=== PATIENT | male | born 1980 | race Caucasian/White ===

== ENCOUNTER 2016-07-04 04:54 | Emergency (ER) | payer SELFPAY ==
[~2016-07-04] VITALS: Ht 182.9 cm; Wt 80.0 kg
[2016-07-04 04:57] VITALS: BP 163/82; PULSE 118; RESP 16; TEMP 97.6; O2SAT 97
[2016-07-04] MEDS ORDERED: SODIUM CHLOR 0.9% 1000 ML INJ 1,000 ML IV SCH (05:22)
[2016-07-04 05:23] VITALS: O2SAT 98
[2016-07-04] MEDS ORDERED: MORPHINE SULFATE 4 MG/ML INJ IV PUSH ONE (05:30)
[2016-07-04] MEDS ORDERED: ONDANSETRON HCL 4 MG/2 ML VIAL IVP ONE (05:30)
[2016-07-04] MEDS ORDERED: SODIUM CHLORIDE 0.9% FLUSH 5 ML FLUSH IVF PRN (05:30)
--- NOTE | 2016-07-04 05:31 | PD ---
HPI Chief Complaint: Skin Problem Time Seen by Provider: 05:16 Travel History International Travel<30 days: No Contact w/Intl Traveler<30days: No Traveled to known affect area: No History of Present Illness HPI The patient is a 35-year-old male who presents to the emergency department for nausea and vomiting of 2 days' duration. The patient states he' s had nausea and vomiting for the last 2 days and has been unable to tolerate any oral intake. The patient denies any diarrhea or abdominal pain, does note occasionally epigastric discomfort prior to vomiting that is alleviated after vomiting. He denies any associated fever, chills, or sweats. The patient also notes an abscess to the volar aspect of the right forearm, thinks he may have been bit by a spider, however, is unsure of how he developed the abscess. The patient states he did squeeze the affected area and got some purulent drainage from the abscess. He denies any history of chronic skin infections or IVDA. The patient denies any associated alcohol use. PFSH Past Medical History Blood Disorders: Yes (thrombocytopenia) Cardiovascular Problems: No Cerebrovascular Accident: Yes Diabetes: No Endocrine: No Genitourinary: No Immune Disorder: No Musculoskeletal: No Neurologic: No Psychiatric: No Reproductive: No Respiratory: No Thyroid Disease: No Influenza Vaccination: No Social History Alcohol Use: No Tobacco Use: Yes Substance Use: No Allergies-Medications (Allergen,Severity, Reaction): Coded Allergies: No Known Allergies (Unverified , 07/04/16) Reported Meds & Prescriptions Reported Meds & Active Scripts Active No Active Prescriptions or Reported Medications Review of Systems General / Constitutional: No: Fever, Chills Cardiovascular: No: Chest Pain or Discomfort Respiratory: No: Shortness of Breath Gastrointestinal: Positive: Nausea, Vomiting, No: Diarrhea, Abdominal Pain Skin: Positive Other (abscess of the right form as noted) Psychiatric: No: Substance Abuse (denies any history of IVDA) Physical Exam Narrative GENERAL: Awake, alert, 35-year-old male who appears his stated age and is in no acute respiratory distress. SKIN: 2 cm circular abscess noted over the volar aspect of the right forearm which is draining serosanguineous drainage. Multiple tattoos noted. HEAD: Atraumatic. Normocephalic. EYES: Pupils equal and round. No scleral icterus. No injection or drainage. ENT: No nasal bleeding or discharge. Mucous membranes pink and moist. NECK: Trachea midline. No JVD. CARDIOVASCULAR: Regular, tachycardic with a heart rate of 110. RESPIRATORY: No accessory muscle use. Clear to auscultation. Breath sounds equal bilaterally. GASTROINTESTINAL: Abdomen soft, non-tender, nondistended. No rebound tenderness. MUSCULOSKELETAL: No obvious deformities. No clubbing. No cyanosis. No edema. NEUROLOGICAL: Awake and alert. No obvious cranial nerve deficits. Motor grossly within normal limits. Normal speech. PSYCHIATRIC: Appropriate mood and affect; insight and judgment normal. Data Data Last Documented VS Vital Signs Date Time Temp Pulse Resp B/P Pulse Ox O2 Delivery O2 Flow Rate FiO2 07/04/16 05:23 98 Room Air 07/04/16 04:57 97.6 118 16 163/82 Orders Complete Blood Count With Diff (07/04/16 05:22) Comprehensive Metabolic Panel (07/04/16 05:22) Lipase (07/04/16 05:22) Iv Access Insert/Monitor (07/04/16 05:22) Ecg Monitoring (07/04/16 05:22) Oximetry (07/04/16 05:22) Morphine Inj (Morphine Inj) (07/04/16 05:30) Ondansetron Inj (Zofran Inj) (07/04/16 05:30) Sodium Chlor 0.9% 1000 Ml Inj (Ns 1000 M (07/04/16 05:22) Sodium Chloride 0.9% Flush (Ns Flush) (07/04/16 05:30) Labs Laboratory Tests Test 07/04/16 05:30 White Blood Count 11.0 TH/MM3 Red Blood Count 4.89 MIL/MM3 Hemoglobin 14.8 GM/DL Hematocrit 42.0 % Mean Corpuscular Volume 85.9 FL Mean Corpuscular Hemoglobin 30.2 PG Mean Corpuscular Hemoglobin 35.1 % Concent Red Cell Distribution Width 13.0 % Platelet Count 90 TH/MM3 Mean Platelet Volume 9.2 FL Neutrophils (%) (Auto) 74.0 % Lymphocytes (%) (Auto) 14.9 % Monocytes (%) (Auto) 9.1 % Eosinophils (%) (Auto) 1.4 % Basophils (%) (Auto) 0.6 % Neutrophils # (Auto) 8.2 TH/MM3 Lymphocytes # (Auto) 1.6 TH/MM3 Monocytes # (Auto) 1.0 TH/MM3 Eosinophils # (Auto) 0.2 TH/MM3 Basophils # (Auto) 0.1 TH/MM3 CBC Comment AUTO DIFF Sodium Level 137 MEQ/L Potassium Level 3.6 MEQ/L Chloride Level 95 MEQ/L Carbon Dioxide Level 31.4 MEQ/L Anion Gap 11 MEQ/L Blood Urea Nitrogen 27 MG/DL Creatinine 1.28 MG/DL Estimat Glomerular Filtration 65 ML/MIN Rate Random Glucose 107 MG/DL Calcium Level 9.9 MG/DL Total Bilirubin 1.1 MG/DL Aspartate Amino Transf 60 U/L (AST/SGOT) Alanine Aminotransferase 133 U/L (ALT/SGPT) Alkaline Phosphatase 87 U/L Total Protein 8.3 GM/DL Albumin 4.4 GM/DL Lipase 119 U/L [facility] Medical Decision Making Medical Screen Exam Complete: Yes Emergency Medical Condition: Yes Medical Record Reviewed: Yes Interpretation(s) Laboratory Tests Test 07/04/16 05:30 White Blood Count 11.0 TH/MM3 Red Blood Count 4.89 MIL/MM3 Hemoglobin 14.8 GM/DL Hematocrit 42.0 % Mean Corpuscular Volume 85.9 FL Mean Corpuscular Hemoglobin 30.2 PG Mean Corpuscular Hemoglobin 35.1 % Concent Red Cell Distribution Width 13.0 % Platelet Count 90 TH/MM3 Mean Platelet Volume 9.2 FL Neutrophils (%) (Auto) 74.0 % Lymphocytes (%) (Auto) 14.9 % Monocytes (%) (Auto) 9.1 % Eosinophils (%) (Auto) 1.4 % Basophils (%) (Auto) 0.6 % Neutrophils # (Auto) 8.2 TH/MM3 Lymphocytes # (Auto) 1.6 TH/MM3 Monocytes # (Auto) 1.0 TH/MM3 Eosinophils # (Auto) 0.2 TH/MM3 Basophils # (Auto) 0.1 TH/MM3 CBC Comment AUTO DIFF Sodium Level 137 MEQ/L Potassium Level 3.6 MEQ/L Chloride Level 95 MEQ/L Carbon Dioxide Level 31.4 MEQ/L Anion Gap 11 MEQ/L Blood Urea Nitrogen 27 MG/DL Creatinine 1.28 MG/DL Estimat Glomerular Filtration 65 ML/MIN Rate Random Glucose 107 MG/DL Calcium Level 9.9 MG/DL Total Bilirubin 1.1 MG/DL Aspartate Amino Transf 60 U/L (AST/SGOT) Alanine Aminotransferase 133 U/L (ALT/SGPT) Alkaline Phosphatase 87 U/L Total Protein 8.3 GM/DL Albumin 4.4 GM/DL Lipase 119 U/L Differential Diagnosis Differential diagnosis includes abscess, cellulitis, MRSA, gastritis, enteritis , pancreatitis, biliary colic, cholecystitis, GERD, dehydration, electrolyte abnormality. Narrative Course IV was established, labs are drawn and sent, and the patient was placed on cardiac telemetry monitoring and continuous pulse oximetry monitoring. The patient was administered morphine, Zofran, and IV fluids. The patient's abscess is draining, therefore, the patient will be placed on Bactrim, no initial indication for incision and drainage. The patient's white count is normal. AST nail tear mildly elevated, lipase is unremarkable. The patient will be discharged home on Zofran and Bactrim. He is advised to follow-up with a primary physician, apply warm compresses to the abscess, and return if symptoms worsen or progress. Diagnosis Primary Impression: Gastritis Qualified Code: K29.00 - Acute gastritis, presence of bleeding unspecified, unspecified gastritis type Additional Impressions: Abscess Nausea & vomiting Qualified Code: R11.2 - Non-intractable vomiting with nausea, unspecified vomiting type Patient Instructions: General Instructions Additional Instructions: Medications as directed. Clear liquid diet and advance as tolerated. Follow- up with your primary physician. Warm compresses to the right forearm abscess to ensure it keeps draining. Return if symptoms worsen or progress. Med/Other Pt SpecificInfo: Prescription(s) given Scripts Ondansetron Odt (Zofran Odt)4 Mg Tab4 Mg SL Q6HR PRN (Nausea/Vomiting) #10 TAB Ref 0 Prov:Dusty Smith MD 07/04/16 Sulfamethoxazole-Trimethoprim (Bactrim DS)800-160 Mg Tab1 Tab PO BID #14 TAB Ref 0 Prov:Dusty Smith MD 07/04/16 Disposition: 01 DISCHARGE HOME Condition: Stable Dusty Smith MD Jul 04, 2016 05:31
[2016-07-04 05:43] LABS: AUTOMATED NEUTROPHIL # 8.2 TH/MM3 (1.8-7.7); BASOPHIL # 0.1 TH/MM3 (0-0.2); BASOPHIL % 0.6 % (0.0-2.0); EOSINOPHIL # 0.2 TH/MM3 (0-0.4); EOSINOPHIL % 1.4 % (0.0-4.0); LYMPH % 14.9 % (9.0-44.0); LYMPHOCYTE # 1.6 TH/MM3 (1.0-4.8); MEAN CELL VOLUME 85.9 FL (80.0-100.0); MEAN CORPUSCULAR HEMOGLOBIN 30.2 PG (27.0-34.0); MEAN CORPUSCULAR HGB CONC 35.1 % (32.0-36.0); MONO % 9.1 % (0.0-8.0); PLATELET COUNT 90 TH/MM3 (150-450); RED BLOOD COUNT 4.89 MIL/MM3 (4.50-5.90)
[2016-07-04 05:45] LABS: HEMO FLAGS AUTO DIFF
[2016-07-04 06:12] LABS: ALT (GPT) 133 U/L (12-78); ANION GAP 11 MEQ/L (5-15); AST (GOT) 60 U/L (15-37); BICARBONATE 31.4 MEQ/L (21.0-32.0); BLOOD UREA NITROGEN 27 MG/DL (7-18); CHLORIDE 95 MEQ/L (98-107); GLOMERULAR FILTRATION RATE 65 ML/MIN (>89); POTASSIUM 3.6 MEQ/L (3.5-5.1); SODIUM (NA) 137 MEQ/L (136-145)
[2016-07-04 06:14] LABS: ALKALINE PHOSPHATASE 87 U/L (45-117); TOTAL BILIRUBIN ADULT 1.1 MG/DL (0.2-1.0)
[2016-07-04] MEDS ORDERED: BACT800T5 PO (06:22)
[2016-07-04] MEDS ORDERED: ZOFR4TAB3 SL (06:22)
[2016-07-04 06:28] LABS: PLATELET ESTIMATE SMEAR LOW (NORMAL); PLATELET MORPHOLOGY NORMAL (NORMAL); SCAN/DIFF AUTO DIFF CONFIRMED
[2016-07-04 06:42] VITALS: BP 110/78
[2016-09-23] MEDS ORDERED: SODIUM CHLOR 0.9% 1000 ML INJ 1,000 ML IV SCH (06:46)
[2016-09-23] MEDS ORDERED: SODIUM CHLORIDE 0.9% FLUSH 10 ML FLUSH IV FLUSH PRN (07:00)
[2016-09-23] MEDS ORDERED: NALOXONE HCL 0.4 MG/ML AMP IV PRN (07:00)
[2016-09-23] MEDS ORDERED: SODIUM CHLORIDE 0.9% FLUSH 10 ML FLUSH IV FLUSH SCH (09:00)
== END 2016-07-04 06:43 | disposition home or self-care (01) ==
LOC: NEPC 04:54
DX: K29.70 Gastritis, unspecified, without bleeding (principal); L02.413 Cutaneous abscess of right upper limb; Z72.0 Tobacco use; D69.6 Thrombocytopenia, unspecified
CPT/HCPCS: 80053; 83690; 85025; 96361; 96374; 96375; 99283; J2270; J2405; J7030

== ENCOUNTER 2016-09-23 01:57 | Inpatient (IN) | payer OTHER ==
[2016-09-23] VITALS (12 sets, daily range): BP systolic 122–138; BP diastolic 61–88; PULSE 62–97; RESP 16–24; TEMP 98.2–98.5; O2SAT 98–100
[~2016-09-23] VITALS: Ht 182.9 cm; Wt 71.0 kg
[~2016-09-23 01:57] MED LIST: BACT800T5 PO; ZOFR4TAB3 SL
--- NOTE | 2016-09-23 02:21 | PD ---
HPI Chief Complaint: Alcohol/Drug Intoxication Time Seen by Provider: 02:19 Travel History International Travel<30 days: No Contact w/Intl Traveler<30days: No Traveled to known affect area: No History of Present Illness HPI 36-year-old white male presents emergency Department under [place] act by PD. The patient was found disorganized and unable to care for himself. The patient appeared confused and under the influence of substances. The patient admits to smoking spice. The patient here denies any suicidal homicidal ideation. He is confused but is able to tell me the year and tinea of the week. He does not know the president. At times he appears lucid and answers questions but other times he babbles incoherently. No meaningful history is obtainable so far from this patient. There is no evidence of trauma. [facility] Past Medical History Narrative Medical Patient's history through review of the medical record. Blood Disorders: Yes (thrombocytopenia) Cardiovascular Problems: No Cerebrovascular Accident: Yes Diabetes: No Endocrine: No Genitourinary: No Immune Disorder: No Musculoskeletal: No Neurologic: No Psychiatric: No Reproductive: No Respiratory: No Thyroid Disease: No Past Surgical History Surgical History: No Previous Surgery Other Surgery: No Social History Alcohol Use: No (denies ) Tobacco Use: Yes Substance Use: No Allergies-Medications (Allergen,Severity, Reaction): Coded Allergies: No Known Allergies (Unverified , 07/04/16) Reported Meds & Prescriptions Reported Meds & Active Scripts Active No Active Prescriptions or Reported Medications Review of Systems ROS Limitations: Altered Mental Status Physical Exam Narrative GENERAL: Well-nourished, well-developed patient. Acutely confused. He is uncooperative. He is alert to year and date but does not know the present. I see no evidence of trauma on his body. SKIN: Warm and dry. HEAD: Normocephalic and atraumatic. EYES: No scleral icterus. No injection or drainage. ENT: No nasal drainage noted. Mucous membranes pink. Airway patent. NECK: Supple, trachea midline. Moves head freely without obvious discomfort. CARDIOVASCULAR: Regular rate and rhythm without murmurs, gallops, or rubs. RESPIRATORY: Breath sounds equal bilaterally. No accessory muscle use. GASTROINTESTINAL: Abdomen soft, non-tender, nondistended. EXTREMITIES: No cyanosis or edema. BACK: Nontender without obvious deformity. No CVA tenderness. NEURO: Patient is alert to person but is confused to his surroundings and circumstances. No sensorimotor deficits. Patient appears somewhat ataxic. Normal speech. PSYCH: No delusions. No auditory or visual hallucinations. Data Data Last Documented VS Vital Signs Date Time Temp Pulse Resp B/P Pulse Ox O2 Delivery O2 Flow Rate FiO2 09/23/16 06:04 20 132/61 Room Air 09/23/16 02:03 98.2 97 98 Orders Complete Blood Count With Diff (09/23/16 02:17) Comprehensive Metabolic Panel (09/23/16 02:17) Drug Screen, Random Urine (09/23/16 02:17) Alcohol (Ethanol) (09/23/16 02:17) Haloperidol Inj (Haldol Inj) (09/23/16 02:30) Lorazepam Inj (Ativan Inj) (09/23/16 02:30) Iv Access Insert/Monitor (09/23/16 02:23) Sodium Chlor 0.9% 1000 Ml Inj (Ns 1000 M (09/23/16 02:30) Lorazepam Inj (Ativan Inj) (09/23/16 03:45) Diphenhydramine Inj (Benadryl Inj) (09/23/16 03:45) Diphenhydramine Inj (Benadryl Inj) (09/23/16 03:37) Lorazepam Inj (Ativan Inj) (09/23/16 03:37) Restraints Non-Violent BEVERLY.Q3H (09/23/16 03:57) Haloperidol Inj (Haldol Inj) (09/23/16 06:00) Labs Laboratory Tests Test 09/23/16 02:20 White Blood Count 8.9 TH/MM3 Red Blood Count 5.14 MIL/MM3 Hemoglobin 14.6 GM/DL Hematocrit 43.4 % Mean Corpuscular Volume 84.5 FL Mean Corpuscular Hemoglobin 28.4 PG Mean Corpuscular Hemoglobin 33.7 % Concent Red Cell Distribution Width 13.3 % Platelet Count 48 TH/MM3 Mean Platelet Volume 9.0 FL Neutrophils (%) (Auto) 64.7 % Lymphocytes (%) (Auto) 23.5 % Monocytes (%) (Auto) 10.4 % Eosinophils (%) (Auto) 0.8 % Basophils (%) (Auto) 0.6 % Neutrophils # (Auto) 5.8 TH/MM3 Lymphocytes # (Auto) 2.1 TH/MM3 Monocytes # (Auto) 0.9 TH/MM3 Eosinophils # (Auto) 0.1 TH/MM3 Basophils # (Auto) 0.1 TH/MM3 CBC Comment AUTO DIFF Differential Comment AUTO DIFF CONFIRMED Platelet Estimate LOW Platelet Morphology Comment NORMAL Red Cell Morphology Comment NORMAL Sodium Level 138 MEQ/L Potassium Level 3.9 MEQ/L Chloride Level 103 MEQ/L Carbon Dioxide Level 24.6 MEQ/L Anion Gap 10 MEQ/L Blood Urea Nitrogen 9 MG/DL Creatinine 1.14 MG/DL Estimat Glomerular Filtration 74 ML/MIN Rate Random Glucose 100 MG/DL Calcium Level 10.4 MG/DL Total Bilirubin 0.6 MG/DL Aspartate Amino Transf 27 U/L (AST/SGOT) Alanine Aminotransferase 38 U/L (ALT/SGPT) Alkaline Phosphatase 85 U/L Total Protein 8.5 GM/DL Albumin 4.0 GM/DL Ethyl Alcohol Level LESS THAN 3 MG/DL MDM Medical Decision Making Medical Screen Exam Complete: Yes Emergency Medical Condition: Yes Medical Record Reviewed: Yes Interpretation(s) Laboratory Tests Test 09/23/16 02:20 White Blood Count 8.9 TH/MM3 Red Blood Count 5.14 MIL/MM3 Hemoglobin 14.6 GM/DL Hematocrit 43.4 % Mean Corpuscular Volume 84.5 FL Mean Corpuscular Hemoglobin 28.4 PG Mean Corpuscular Hemoglobin 33.7 % Concent Red Cell Distribution Width 13.3 % Platelet Count 48 TH/MM3 Mean Platelet Volume 9.0 FL Neutrophils (%) (Auto) 64.7 % Lymphocytes (%) (Auto) 23.5 % Monocytes (%) (Auto) 10.4 % Eosinophils (%) (Auto) 0.8 % Basophils (%) (Auto) 0.6 % Neutrophils # (Auto) 5.8 TH/MM3 Lymphocytes # (Auto) 2.1 TH/MM3 Monocytes # (Auto) 0.9 TH/MM3 Eosinophils # (Auto) 0.1 TH/MM3 Basophils # (Auto) 0.1 TH/MM3 CBC Comment AUTO DIFF Differential Comment AUTO DIFF CONFIRMED Platelet Estimate LOW Platelet Morphology Comment NORMAL Red Cell Morphology Comment NORMAL Sodium Level 138 MEQ/L Potassium Level 3.9 MEQ/L Chloride Level 103 MEQ/L Carbon Dioxide Level 24.6 MEQ/L Anion Gap 10 MEQ/L Blood Urea Nitrogen 9 MG/DL Creatinine 1.14 MG/DL Estimat Glomerular Filtration 74 ML/MIN Rate Random Glucose 100 MG/DL Calcium Level 10.4 MG/DL Total Bilirubin 0.6 MG/DL Aspartate Amino Transf 27 U/L (AST/SGOT) Alanine Aminotransferase 38 U/L (ALT/SGPT) Alkaline Phosphatase 85 U/L Total Protein 8.5 GM/DL Albumin 4.0 GM/DL Ethyl Alcohol Level LESS THAN 3 MG/DL Differential Diagnosis Differential diagnoses: Alcohol intoxication, substance abuse, electrolyte abnormality, malingering Narrative Course The patient was initially medicated with Haldol 5 mg and 1 mg of Ativan IM. The patient has continued to be uncooperative. He will not stay in his room. He is confused and uncooperative. Nonviolent restraints have been ordered. The patient's given an additional 2 mg of Ativan and 50 of Benadryl IM. The patient still is uncooperative, confused and agitated. He is given additional 5 mg of Haldol IM. Patient is being monitored. His vital signs have been stable. At this time the patient is is still confused and altered mental status and will be admitted to the service for observation. The case has been discussed with Dr. LEMUS who has agreed to admit the patient. I do not believe a CAT scan of his brain is indicated. I reviewed prior evaluations in the ER for similar presentation with a negative CAT scan. I see no evidence of trauma. Diagnosis Primary Impression: Altered mental status, unspecified Admitting Information Admitting Physician Requests: Observation Scripts No Active Prescriptions or Reported Meds Condition: Stable Rosalino Godinez September 23, 2016 02:21
[2016-09-23 02:30] LABS: AUTOMATED NEUTROPHIL # 5.8 TH/MM3 (1.8-7.7); BASOPHIL # 0.1 TH/MM3 (0-0.2); BASOPHIL % 0.6 % (0.0-2.0); EOSINOPHIL # 0.1 TH/MM3 (0-0.4); EOSINOPHIL % 0.8 % (0.0-4.0); HEMATOCRIT 43.4 % (39.0-51.0); LYMPH % 23.5 % (9.0-44.0); LYMPHOCYTE # 2.1 TH/MM3 (1.0-4.8); MEAN CELL VOLUME 84.5 FL (80.0-100.0); MEAN CORPUSCULAR HEMOGLOBIN 28.4 PG (27.0-34.0); MEAN CORPUSCULAR HGB CONC 33.7 % (32.0-36.0); MONO % 10.4 % (0.0-8.0); NEUT % 64.7 % (16.0-70.0); PLATELET COUNT 48 TH/MM3 (150-450); RED BLOOD COUNT 5.14 MIL/MM3 (4.50-5.90); RED CELL DISTRIBUTION WIDTH 13.3 % (11.6-17.2); WHITE BLOOD COUNT 8.9 TH/MM3 (4.0-11.0)
[2016-09-23] MEDS ORDERED: SODIUM CHLOR 0.9% 1000 ML INJ 2,000 ML IV ONE (02:30)
[2016-09-23] MEDS ORDERED: LORazepam 2 MG/ML VIAL IM ONE ×2 (02:30→03:45)
[2016-09-23] MEDS ORDERED: HALOPERIDOL LACTATE 5 MG/ML AMP IM ONE ×2 (02:30→06:00)
[2016-09-23 02:52] LABS: ALT (GPT) 38 U/L (12-78); ANION GAP 10 MEQ/L (5-15); AST (GOT) 27 U/L (15-37); BICARBONATE 24.6 MEQ/L (21.0-32.0); BLOOD UREA NITROGEN 9 MG/DL (7-18); CHLORIDE 103 MEQ/L (98-107); GLOMERULAR FILTRATION RATE 74 ML/MIN (>89); POTASSIUM 3.9 MEQ/L (3.5-5.1); SODIUM (NA) 138 MEQ/L (136-145)
[2016-09-23 02:55] LABS: ALKALINE PHOSPHATASE 85 U/L (45-117); HEMO FLAGS AUTO DIFF; PLATELET ESTIMATE SMEAR LOW (NORMAL); PLATELET MORPHOLOGY NORMAL (NORMAL); SCAN/DIFF AUTO DIFF CONFIRMED; TOTAL BILIRUBIN ADULT 0.6 MG/DL (0.2-1.0)
[2016-09-23] MEDS ORDERED: diphenhydrAMINE HCL 50 MG/ML VIAL ONE (03:37)
[2016-09-23] MEDS ORDERED: LORazepam 2 MG/ML VIAL ONE (03:37)
[2016-09-23] MEDS ORDERED: diphenhydrAMINE HCL 50 MG/ML VIAL IM ONE (03:45)
--- NOTE | 2016-09-23 07:06 | HHI.HP ---
[facility] No Primary Care Physician Admission Diagnosis altered mental status Diagnoses: Chief Complaint: not able to give hx Travel History International Travel<30 Days: No Contact w/Intl Traveler <30 Da: No Traveled to Known Affected Are: No History of Present Illness History from ER PA communication, and review of medical records. Patient himself is not able to give any history at all. The patient was brought in as a [place] act by law enforcement officers. He was found wandering in store saying random statements. Patient was quite agitated and confused while in the emergency room as the night goes by. He was found wandering around from his room to the bathroom. He was talking without making any sense. He was also hallucinating and seeing things. He was given a total of 3 mg Ativan IM, with Haldol 10 mg IM. He continued to be quite agitated and was starting to be found and against the staff members and required leather restraints. Medical team was therefore called for hospitalization. Patient upon my arrival is severely agitated with multiple staff members around him trying to restrain him. He was not making sense at all when questions were asked. He was noted to be tremulous. He would not give me any history regarding benzodiazepine use or alcohol use. His alcohol level was 3. His drug screen was pending since he was basically urinating all around the room without giving proper sample. On review of medical records, it seems that he does not exactly have history of alcohol abuse. 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 Patient reported to them at the time that he was treated with steroids previously and responded well to it. History of tobacco abuse History of marijuana use Past Surgical History Per EMR: None. Allergies: Coded Allergies: No Known Allergies (Unverified , 07/04/16) Family History Per EMR: Denies family history of any medical issues that time. Social History Per EMR: Per EMR: Smokes about 2-3 packs of cigarettes a day. Has always denied alcoholism and previous admissions. There was report of marijuana use. Also had been in the retirement system previously. Physical Exam Vital Signs Vital Signs Date Time Temp Pulse Resp B/P Pulse Ox O2 Delivery O2 Flow Rate FiO2 09/23/16 06:04 20 132/61 Room Air 09/23/16 02:10 Room Air 09/23/16 02:03 98.2 97 16 138/87 98 Physical Exam GENERAL: This is a young gentleman, in acute distress, while being placed on 4 point restraints by staff members. SKIN: Multiple tattoos. HEAD: Atraumatic. Normocephalic. No temporal or scalp tenderness. EYES: Pupils equal round and reactiveNo scleral icterus. No injection or drainage. ENT: Nose without bleeding, purulent drainage or septal hematoma. Airway patent. NECK: Trachea midline. No JVD. Supple, nontender, no meningeal signs. CARDIOVASCULAR: Regular rate and rhythm without murmurs, gallops, or rubs. RESPIRATORY: Clear to auscultation. Breath sounds equal bilaterally. GASTROINTESTINAL: Abdomen soft, non-tender, nondistended. No guarding. MUSCULOSKELETAL: Extremities without clubbing, cyanosis, or edema. No calf tenderness. NEUROLOGICAL: Quite confused, not able to focus and answer questions. Tremulous. Hallucinating. On 4 point restraints. Moving all 4 limbs. No gross focal deficits. Laboratory Laboratory Tests Test 09/23/16 02:20 White Blood Count 8.9 Red Blood Count 5.14 Hemoglobin 14.6 Hematocrit 43.4 Mean Corpuscular Volume 84.5 Mean Corpuscular Hemoglobin 28.4 Mean Corpuscular Hemoglobin 33.7 Concent Red Cell Distribution Width 13.3 Platelet Count 48 Mean Platelet Volume 9.0 Neutrophils (%) (Auto) 64.7 Lymphocytes (%) (Auto) 23.5 Monocytes (%) (Auto) 10.4 Eosinophils (%) (Auto) 0.8 Basophils (%) (Auto) 0.6 Neutrophils # (Auto) 5.8 Lymphocytes # (Auto) 2.1 Monocytes # (Auto) 0.9 Eosinophils # (Auto) 0.1 Basophils # (Auto) 0.1 CBC Comment AUTO DIFF Differential Comment AUTO DIFF CONFIRMED Platelet Estimate LOW Platelet Morphology Comment NORMAL Red Cell Morphology Comment NORMAL Sodium Level 138 Potassium Level 3.9 Chloride Level 103 Carbon Dioxide Level 24.6 Anion Gap 10 Blood Urea Nitrogen 9 Creatinine 1.14 Estimat Glomerular Filtration 74 Rate Random Glucose 100 Calcium Level 10.4 Total Bilirubin 0.6 Aspartate Amino Transf 27 (AST/SGOT) Alanine Aminotransferase 38 (ALT/SGPT) Alkaline Phosphatase 85 Total Protein 8.5 Albumin 4.0 Ethyl Alcohol Level LESS THAN 3 Result Diagram: 09/23/1621909/23/16219 Assessment and Plan Assessment and Plan Impression: Altered mental statuslikely due to acute intoxication versus withdrawal. To me looks more of the latter. Thrombocytopeniaacute on chronic. History of CVA History of thrombocytopenia History of hepatitis C History of ITPwas evaluated by hematology in 2013. Patient reported to them at the time that he was treated with steroids previously and responded well to it. History of tobacco abuse History of marijuana use Plan: Will need to sedate patient in order to provide care. For now, continue restraints. Continue Loja catheter. Send urine for drug screen. Thiamine 100 mg IV daily. Ativan 2 mg IV 1 dose now together with Haldol 2 mg IV 1 dose now. If patient does not improve with the above treatment, start patient on Precedex drip per protocol. Check UA as well. Ideally, I would like to obtain a CT of the brain to rule out spontaneous intracranial bleed in a patient with prior CVA history and thrombocytopenia. However at this point, patient is quite agitated and could not be able to go into CT scan. To send pt to CT once he is somewhat calm. DVT prophylaxis on SCD sitter at bedside for safety while in ER admit to ICU for close monitoring Discussed Condition With ER PA, and ER Nurse Physician Certification 2 Midnight Certification Type: Admission for Inpatient Services Order for Inpatient Services The services are ordered in accordance with Medicare regulations or non- Medicare payer requirements, as applicable. In the case of services not specified as inpatient-only, they are appropriately provided as inpatient services in accordance with the 2-midnight benchmark. Estimated LOS (days): 3 days is the estimated time the patient will need to remain in the hospital, assuming treatment plan goals are met and no additional complications. Post-Hospital Plan: Home Daisy Perez MD September 23, 2016 07:06
[2016-09-23 07:15] LABS: AMPHETAMINE, URINE NEG (NEG); BARBITURATES, URINE NEG (NEG); COCAINE, URINE POS (NEG)
[2016-09-23] MEDS ORDERED: HALOPERIDOL LACTATE 5 MG/ML AMP IV PUSH ONE (07:15)
[2016-09-23] MEDS ORDERED: LORazepam 2 MG/ML VIAL IV PUSH ONE (07:15)
[2016-09-23] MEDS ORDERED: SODIUM CHLOR 0.9% 1000 ML INJ 1,000 ML IV ONE (07:15)
[2016-09-23 08:21] LABS: BLOOD, URINE NEG (NEG); COMMENT (UR) CULT NOT INDICATED; CULTURE IF INDICATED CULT NOT INDICATED; GLUCOSE,URINE NEG (NEG); KETONE, URINE NEG (NEG); MUCUS URINE FEW /lpf (OCC); NITRITE,URINE NEG (NEG); URINE COLOR YELLOW (YELLW/STRAW)
[2016-09-23] MEDS: DEXMEDETOMIDINE INJ 200 MCG in SODIUM CHLORIDE 0.9% INJ 50 ML IV SCH ×5 (08:43→22:32)
[2016-09-23] MEDS: THIAMINE INJ 100 MG in SODIUM CHLORIDE 0.9% INJ 100 ML IV SCH (09:06)
[2016-09-23] MEDS ORDERED: CHLORHEXIDINE GLUCONATE 2 % 1 PACK (2 CLOTHS)(extra cloths) TOPICAL PRN (10:30)
--- NOTE | 2016-09-23 13:17 | HHI.PR ---
Addendum to Inpatient Note Addendum Reason: Additional Documentation Additional Information Follow up Encephalopathy patient seen and examined but lethargic and unable to provide any history patient is currently on Precedex drip with 4pts restrains Wilfrid Merino MD September 23, 2016 13:17
[2016-09-24] VITALS (12 sets, daily range): PULSE 59–127
[2016-09-24] MEDS: DEXMEDETOMIDINE INJ 200 MCG in SODIUM CHLORIDE 0.9% INJ 50 ML IV SCH ×2 (00:47→06:48)
[2016-09-24] MEDS: CHLORHEXIDINE GLUCONATE 2 % 1 PACK (2 CLOTHS)(taper/protocol) TOPICAL SCH (04:00)
[2016-09-24] MEDS: THIAMINE INJ 100 MG in SODIUM CHLORIDE 0.9% INJ 100 ML IV SCH (08:59)
--- NOTE | 2016-09-24 12:55 | HHI.PR ---
Subjective Remarks Follow-up toxic encephalopathy/acute mood disorder 09/24/16-patient seen and examined, alert and oriented 3. Patient blames his condition on admission on the fact that he took OTC sleepy pills (Jet sleep) x 30 tablets due to severe insomnia. However he denies any UDS despite the fact he was confronted with a positive drug screen. Objective Vitals Vital Signs Date Time Temp Pulse Resp B/P Pulse Ox O2 Delivery O2 Flow Rate FiO2 09/24/16 10:00 77 09/24/16 08:00 63 09/24/16 06:00 76 09/24/16 04:00 60 09/24/16 02:00 59 09/24/16 00:00 62 09/23/16 22:00 67 09/23/16 20:00 62 09/23/16 18:00 64 09/23/16 16:00 63 09/23/16 14:00 67 I/O 09/23/16 09/23/16 09/23/16 09/24/16 09/24/16 09/24/16 07:00 15:00 23:00 07:00 15:00 23:00 Intake Total 70 ml 141 ml 600 ml Output Total 2200 ml 350 ml 500 ml Balance -2130 ml -209 ml 100 ml Intake Oral 480 ml IV Total 70 ml 141 ml 120 ml Output Urine Total 2200 ml 350 ml 500 ml # Voids 0 # Bowel Movements 1 Result Diagram: 09/23/16 0220 09/23/16 0220 Objective Remarks GENERAL: NAD SKIN: Warm and dry. Multiple tattoos covering entire body HEAD: Normocephalic. EYES: No scleral icterus. No injection or drainage. NECK: Supple, trachea midline. No JVD or lymphadenopathy. CARDIOVASCULAR: Regular rate and rhythm without murmurs, gallops, or rubs. RESPIRATORY: Breath sounds equal bilaterally. No accessory muscle use. GASTROINTESTINAL: Abdomen soft, non-tender, nondistended. MUSCULOSKELETAL: No cyanosis, or edema. BACK: Nontender without obvious deformity. No CVA tenderness. Procedures none A/P Problem List: (1) Toxic encephalopathy ICD Code: G92 Status: Acute (2) Polysubstance abuse ICD Code: F19.10 Status: Acute (3) Tobacco dependence ICD Code: F17.200 Status: Acute (4) Thrombocytopenia ICD Code: D69.6 Status: Acute Assessment and Plan 36-year-old man with Toxic encephalopathy Resolved. Will wean off Precedex Polysubstance abuse UDS positive for cocaine; strongly counseled against Patient was admitted as a Marshman act by law enforcement, therefore will consult psychiatry History hepatitis C , thrombocytopenia, CVA Chronic, continue to monitor DVT prophylaxis: Bilateral SCDs Patient is currently medically stable for transfer to psychiatry or discharge. Psychiatry consultation pending Wilfrid Merino MD September 24, 2016 12:55
[2016-09-24] MEDS ORDERED: CALCIUM CARBONATE 500 MG CHEWABLE TAB CHEW PRN (13:00)
[2016-09-24] MEDS ORDERED: DOCUSATE SODIUM 50 MG/SENNA 8.6 MG TAB PO PRN (13:00)
[2016-09-24] MEDS ORDERED: ONDANSETRON HCL 4 MG/2 ML VIAL IV PRN (13:00)
[2016-09-24] MEDS ORDERED: ACETAMINOPHEN 325 MG TAB PO PRN (13:00)
[2016-09-24] MEDS: DEXMEDETOMIDINE 200 MCG in NS 50 ML IV SCH ×2 (18:39→22:17)
[2016-09-25] VITALS: PULSE 65
[2016-09-25] MEDS: DEXMEDETOMIDINE 200 MCG in NS 50 ML IV SCH ×2 (01:58→07:08)
[2016-09-25 02:00] VITALS: PULSE 71
[2016-09-25 04:00] VITALS: PULSE 68
[2016-09-25] MEDS: CHLORHEXIDINE GLUCONATE 2 % 1 PACK (2 CLOTHS)(taper/protocol) TOPICAL SCH (04:00)
[2016-09-25 06:00] VITALS: PULSE 71
[2016-09-25 08:00] VITALS: PULSE 68
[2016-09-25] MEDS ORDERED: NICOTINE 21 MG/24 HR PATCH T-DERMAL SCH (09:00)
[2016-09-25] MEDS ORDERED: THIAMINE HCL 100 MG TAB PO SCH (09:00)
[2016-09-25 10:00] VITALS: PULSE 78
--- NOTE | 2016-09-25 10:05 | HHI.DS ---
Discharge Summary Admission Date September 23, 2016 at 07:04 Discharge Date: Sep 25, 2016 Admitting Diagnosis altered mental status (1) Toxic encephalopathy ICD Code: G92 Diagnosis: Principal (2) Polysubstance abuse ICD Code: F19.10 Diagnosis: Principal (3) Tobacco dependence ICD Code: F17.200 Diagnosis: Principal (4) Thrombocytopenia ICD Code: D69.6 Diagnosis: Secondary Procedures none Brief History - From Admission History from ER PA communication, and review of medical records. Patient himself is not able to give any history at all. The patient was brought in as a Marchman act by law enforcement officers. He was found wandering in store saying random statements. Patient was quite agitated and confused while in the emergency room as the night goes by. He was found wandering around from his room to the bathroom. He was talking without making any sense. He was also hallucinating and seeing things. He was given a total of 3 mg Ativan IM, with Haldol 10 mg IM. He continued to be quite agitated and was starting to be found and against the staff members and required leather restraints. Medical team was therefore called for hospitalization. Patient upon my arrival is severely agitated with multiple staff members around him trying to restrain him. He was not making sense at all when questions were asked. He was noted to be tremulous. He would not give me any history regarding benzodiazepine use or alcohol use. His alcohol level was 3. His drug screen was pending since he was basically urinating all around the room without giving proper sample. On review of medical records, it seems that he does not exactly have history of alcohol abuse. CBC/BMP: 09/23/16 0220 09/23/16 0220 Significant Findings Laboratory Tests Test 09/23/16 09/23/16 02:20 06:55 Platelet Count 48 TH/MM3 (150-450) Monocytes (%) (Auto) 10.4 % (0.0-8.0) Platelet Estimate LOW (NORMAL) Estimat Glomerular Filtration 74 ML/MIN (>89) Rate Calcium Level 10.4 MG/DL (8.5-10.1) Total Protein 8.5 GM/DL (6.4-8.2) Urine Turbidity HAZY (CLEAR) Urine Mucus FEW /lpf (OCC) Urine Cocaine Screen POS (NEG) Urine Cannabinoids Screen POS (NEG) PE at Discharge GENERAL: NAD SKIN: Warm and dry. Multiple tattoos covering entire body CN: grossly intact, pt able to smile, open and close jaw, no tongue deviation and drooping of the mouth noted. CARDIOVASCULAR: Regular rate and rhythm without murmurs, gallops, or rubs. RESPIRATORY: Breath sounds equal bilaterally. No accessory muscle use. GASTROINTESTINAL: Abdomen soft, non-tender, nondistended. MUSCULOSKELETAL: No cyanosis, or edema. Psych: anxious to leave Pt update on day of discharge Pt states he feels well, wants to be discharged, no CP/SOB/N/V states his mouth feels funny but otherwise more concerned about finding his cell phone. RN at bedside, no concerns at this time. Hospital Course Toxic encephalopathy/ Resolved. pt has been off the Precedex for the past 1hr, doing well. Per pharmacy half life is 3 hours. ok to d/c in 2 hours. I discussed at length w psychiatrist, Dr. Chávez. He lifted the backer Act and tells me that pt has capacity to make decision. From a psychiatric standpoint, pt must get detox as per [facility] Act however, he doesn't meet criteria for inpatient psych and from a medical standpoint he is doing well and can be discharged. Pt can leave AMA as well if he chooses not to wait the full 2 hours. Polysubstance abuse: UDS positive for cocaine and cannabinoids; strongly counseled against use of these and encouraged him to go to detox upon discharge. Patient was admitted as a Marshman act by law enforcement, psychiatry has lifted backer act and pt can be discharged from their standpoint. Pt instructed to go to detox when leaving hospital. He voices his understanding. History hepatitis C , thrombocytopenia, CVA: Chronic and stable. RN at bedside and was present during my recommendations. Pt Condition on Discharge: Stable Discharge Disposition: Discharge Home Discharge Time: > 30 minutes Discharge Instructions DIET: Follow Instructions for: As Tolerated, No Restrictions Activities you can perform: Regular-No Restrictions Follow up Referrals: Physician - 1 Week Psychiatry Adult - 1 Week Zakiya Cooper MD Sep 25, 2016 10:05
--- NOTE | 2016-09-25 11:37 | PD.CONS ---
Provisional Diagnosis Admission Date September 23, 2016 at 07:04 Hammond I. Polysubstance dependence, including cocaine, cannabis amphetamines, substance- induced mood disorder, Hammond II. Deferred Hammond III. Hepatitis C, CVA, thrombocytopenia Hammond IV. History of incarcerations, polysubstance abuse, poor social support Hammond V. 57 History of Present Illness Service Psychiatry Consult Requested By Primary Care Physician No Primary Care Physician HPI The patient is a 36-year-old man, domicile with his in [place] , employed, with psychiatric history of polysubstance dependence, including cocaine, marijuana, amphetamines, no previous psychiatric hospitalizations, no previous suicidal attempts, patient has history of incarcerations due to drug possession and robbery, medical history of hepatitis C, thrombocytopenia, CVA. The patient was brought in as a Marchman act by law enforcement officers. He was found wandering in store saying random statements.Patient was quite agitated and confused while in the emergency room as the night goes by.He was found wandering around from his room to the bathroom. He was talking without making any sense.He was also hallucinating and seeing things.He was given a total of 3 mg Ativan IM, with Haldol 10 mg IM. He continued to be quite agitated and was starting to be found and against the staff members and required leather restraints. Patient was admitted due to altered mental status. Initially positive for cocaine and cannabis. On psychiatric evaluation this morning patient is found calm, cooperative and pleasant. Patient is demanding to be discharged because he has to go to work. Patient says that yesterday he used some drugs "the most probably was manipulated and they put something else". Patient denies depressive symptoms, he denies suicidal ideation, he denies homicidal ideation, he denies visual and auditory hallucinations, he denies anxiety and jordy. He seems logical, coherent and relevant. He is mostly focused in discharge. Oriented 3, no gross cognitive impairment, no attention deficit. Patient says that he is to [employer] "I know exactly what to do". Patient reports almost daily use of crack cocaine and cannabis, occasional use of alcohol and amphetamines. Review of Systems Constitutional: DENIES: Diaphoretic episodes, Fatigue, Fever, Weight gain, Weight loss, Chills, Dizziness, Change in appetite, Night Sweats Endocrine: DENIES: Heat/cold intolerance, Polydipsia, Polyuria, Polyphagia Eyes: DENIES: Blurred vision, Diplopia, Eye inflammation, Eye pain, Vision loss , Photosensitivity, Double Vision Ears, nose, mouth, throat: DENIES: Tinnitus, Hearing loss, Vertigo, Nasal discharge, Oral lesions, Throat pain, Hoarseness, Ear Pain, Running Nose, Epistaxis, Sinus Pain, Toothache, Odynophagia Respiratory: DENIES: Apneas, Cough, Snoring, Wheezing, Hemoptysis, Sputum production, Shortness of breath Cardiovascular: DENIES: Chest pain, Palpitations, Syncope, Dyspnea on Exertion , PND, Lower Extremity Edema, Orthopnea, Claudication Gastrointestinal: DENIES: Abdominal pain, Black stools, Bloody stools, Constipation, Diarrhea, Nausea, Vomiting, Difficulty Swallowing, Anorexia Genitourinary: DENIES: Sexual dysfunction, Urinary frequency, Urinary incontinence, Urgency, Hematuria, Dysuria, Nocturia, Penile Discharge, Testicular Pain, Testicular Swelling Musculoskeletal: DENIES: Joint pain, Muscle aches, Stiffness, Joint Swelling, Back pain, Neck pain Integumentary: DENIES: Abnormal pigmentation, Nail changes, Pruritus, Rash Hematologic/lymphatic: DENIES: Bruising, Lymphadenopathy Immunologic/allergic: DENIES: Eczema, Urticaria Neurologic: DENIES: Abnormal gait, Headache, Localized weakness, Paresthesias, Seizures, Speech Problems, Tremor, Poor Balance Psychiatric: DENIES: Anxiety, Confusion, Mood changes, Depression, Hallucinations, Agitation, Suicidal Ideation, Homicidal Ideation, Delusions Past Family Social History Coded Allergies: No Known Allergies (Unverified , 07/04/16) Discontinued Scripts Ondansetron Odt (Zofran Odt)4 Mg Tab4 Mg SL Q6HR PRN (Nausea/Vomiting) #10 TAB Ref 0 Prov:Dusty Smith MD 07/04/16 Sulfamethoxazole-Trimethoprim (Bactrim DS)800-160 Mg Tab1 Tab PO BID #14 TAB Ref 0 Prov:Dusty Smith MD 07/04/16 Current Medications Medications (Trade) Dose Ordered Sig/Avery Route Start Time Stop Time Status Last Admin Miscellaneous Information Patient in critical care unit? Ass... [id number] 09/23/16 10:30 (Chlorhexidine 2% Cloth) 3 pack DAILY@04 TOPICAL 09/24/16 04:00 09/28/16 04:01 09/24/16 04:00 (Chlorhexidine 2% Cloth) 3 pack UNSCH PRN TOPICAL 09/23/16 10:30 09/28/16 10:29 (Vitamin B1) 100 mg DAILY PO 09/25/16 09:00 09/25/16 09:30 (Habitrol 21 Mg Patch.24 Hr) 1 patch DAILY T-DERMAL 09/25/16 09:00 09/25/16 09:30 Miscellaneous Information 1 HS T-DERMAL 09/25/16 21:00 (Tylenol) 650 mg Q4H PRN PO 09/24/16 13:00 (Zofran Inj) 4 mg Q6H PRN IV 09/24/16 13:00 (Idalia-Colace) 1 tab BID PRN PO 09/24/16 13:00 Calcium Carbonate 1000 mg 1,000 mg TID PRN CHEW 09/24/16 13:00 (Precedex Inj/NS Inj) 52 ml @ 0 mls/hr TITRATE IV 09/24/16 19:00 09/25/16 07:08 Family History His mother is an alcoholic Social History Patient was born and raised in [facility], using [employer] with , he worked as a automotive painter helper, highest level of education is high school Patient's Strengths (min. 2) Verbal communication Physical Exam On physical exam, no withdrawal, no EPS, no tremors, no psychomotor agitation or retardation, okay disturbances are Vital Signs Vital Signs Date Time Temp Pulse Resp B/P Pulse Ox O2 Delivery O2 Flow Rate FiO2 09/25/16 10:00 78 09/23/16 09:46 22 134/88 98 Room Air 09/23/16 07:19 98.5 I/O 09/24/16 09/24/16 09/25/16 08:00 16:00 00:00 Intake Total 600 ml 396 ml Output Total 500 ml 850 ml Balance 100 ml -454 ml Lab Results Test 09/23/16 02:20 White Blood Count 8.9 Red Blood Count 5.14 Hemoglobin 14.6 Hematocrit 43.4 Mean Corpuscular Volume 84.5 Mean Corpuscular Hemoglobin 28.4 Mean Corpuscular Hemoglobin 33.7 Concent Red Cell Distribution Width 13.3 Platelet Count 48 Mean Platelet Volume 9.0 Neutrophils (%) (Auto) 64.7 Lymphocytes (%) (Auto) 23.5 Monocytes (%) (Auto) 10.4 Eosinophils (%) (Auto) 0.8 Basophils (%) (Auto) 0.6 Neutrophils # (Auto) 5.8 Lymphocytes # (Auto) 2.1 Monocytes # (Auto) 0.9 Eosinophils # (Auto) 0.1 Basophils # (Auto) 0.1 CBC Comment AUTO DIFF Differential Comment AUTO DIFF CONFIRMED Platelet Estimate LOW Platelet Morphology Comment NORMAL Red Cell Morphology Comment NORMAL Sodium Level 138 Potassium Level 3.9 Chloride Level 103 Carbon Dioxide Level 24.6 Anion Gap 10 Blood Urea Nitrogen 9 Creatinine 1.14 Estimat Glomerular Filtration 74 Rate Random Glucose 100 Calcium Level 10.4 Total Bilirubin 0.6 Aspartate Amino Transf 27 (AST/SGOT) Alanine Aminotransferase 38 (ALT/SGPT) Alkaline Phosphatase 85 Total Protein 8.5 Albumin 4.0 Ethyl Alcohol Level LESS THAN 3 Result Diagram: 09/23/1621909/23/16219 Mental Status Examination Appearance man, multiple tattoos, age appearing, good hygiene, [facility], calm and cooperative Speech: Unremarkable Orientation: x3 Memory: Unremarkable Thought Process: Logical Thought Content: Unremarkable Language Fluent and spontaneous Fund of Knowledge Adequate for level of education Hallucination Type: None Attention and Concentration: Good Suicidal Ideation: No Previous Suicide Attempts: No Homicidal Ideation: No Judgment: WNL Affect: Good Mood: Appropriate Motor Activity: Normal gait Assessment & Plan Problem List: (1) Polysubstance abuse Assessment & Plan: On psychiatric evaluation today the patient does not present any evidence of acute, concerning or significant objective or subjective symptomatology of depression, anxiety, jordy or psychosis. Patient denies suicidal and homicidal ideation, he denies visual and auditory hallucinations. At the moment of this evaluation patient is logical, coherent and relevant, oriented 3, without any attention deficit, no gross cognitive impairment. Patient is now clinically sober, able to admit that yesterday he was intoxicated with cocaine, cannabis, "and something else". Patient reports almost daily use of cannabis and cocaine. He does not meet criteria for psychiatric admission at this moment. He can continue with pursuing rehabilitation program as per [facility] act. He can continue medical treatment as needed. Patient has history of aggressive behavior, assaultive behavior, about 5 incarcerations, one of them for 3 years due to "drug possession". Patient poses elevated risk of aggressive behavior and hostility the hospital. Haldol 5 mg IM and Ativan 2 mg IM every 8 hours when necessary agitation and aggressive behavior can be order. Patient has decision-making capacity to site AMA at this moment. Extensive support, motivation, psychoeducation provided. Consult appreciated. ICD Code: F19.10 Assessment & Plan Estimated LOS: days Jeffery Rodriguez MD Sep 25, 2016 11:37
--- NOTE | 2016-09-25 11:46 | HHI.PR ---
Addendum to Inpatient Note Addendum Reason: Additional Documentation Additional Information I was called by RN because pt had a "locked jaw". when I arrived, pt no longer had it and is able to move his jaw but his speech is somewhat muffled. he tells me that he has been doing this for the past 4 days and he is detoxing from heroin. Pt tells me that he feels better and he doesn't want to stay and will leave now. I explained to him that I would rather monitor him after this incident at least a couple hours, pt refuses. he tells me that he will go [facility] after he leaves here for detox. he states that he will not stay here and he has to go. At this time, pt is refusing to be monitored, will leave AMA. As he was walking out of his room, his speech was normal and he walked out w no difficulty. Per RN, this was the first time this had happened, pt claims that he has been having this on and off for 4 days. He states that if he gets worst he will come back to seek medical attention. Zakiya Cooper MD Sep 25, 2016 11:46
[2016-09-25] MEDS ORDERED: REMOVE OLD PATCH T-DERMAL SCH (21:00)
== END 2016-09-25 12:00 | disposition left against medical advice (07) | DRG 917 ==
LOC: NEPD 01:57 → NEDA 06:59 → OBSVTOIN 07:04 → HIME 09:50
PROVIDERS: ADMIT Hospitalist; ATTEND Hospitalist
DX: T40.5X1A Poisoning by cocaine, accidental (unintentional), initial encounter (principal); G92 Toxic encephalopathy; D69.3 Immune thrombocytopenic purpura; F14.20 Cocaine dependence, uncomplicated; F15.20 Other stimulant dependence, uncomplicated; Z78.1 Physical restraint status; F17.200 Nicotine dependence, unspecified, uncomplicated; G47.00 Insomnia, unspecified; Z86.73 Personal history of transient ischemic attack (TIA), and cerebral infarction without residual deficits; Z91.83 Wandering in diseases classified elsewhere; B19.20 Unspecified viral hepatitis C without hepatic coma; F12.20 Cannabis dependence, uncomplicated; F19.24 Other psychoactive substance dependence with psychoactive substance-induced mood disorder; Z81.1 Family history of alcohol abuse and dependence; Y92.9 Unspecified place or not applicable
CPT/HCPCS: 80053; 80307; 81001; 85025; 87641; 96372; J1200; J1630; J2060; J3411; J7030

== ENCOUNTER 2016-12-01 20:26 | Emergency (ER) | payer OTHER ==
[~2016-12-01] VITALS: Ht 182.9 cm; Wt 84.0 kg
[2016-12-01] MEDS ORDERED: SODIUM CHLOR 0.9% 1000 ML INJ 1,000 ML IV ONE ×2 (20:45→22:45)
[2016-12-01 20:46] VITALS: BP 134/86; PULSE 101; RESP 16; TEMP 98.2; O2SAT 96
[2016-12-01 20:52] VITALS: RESP 14; O2SAT 99
--- NOTE | 2016-12-01 20:55 | PD ---
HPI Chief Complaint: Psychiatric Symptoms Time Seen by Provider: 20:40 Travel History International Travel<30 days: No Contact w/Intl Traveler<30days: No History of Present Illness HPI The patient is a 36 year old male who presents to the [facility] emergency department with a history of being noted by someone prior to arrival to have a decreased level of consciousness. The patient was noted to have agonal respirations with pinpoint pupils prior to arrival, O2 saturations in the 80s. The patient reportedly had a 1 year 9-month-old son with him at the time. IV access was obtained by ambulance services and the patient was given 0.4 mg of Narcan. The patient awakened and became agitated. The patient refused transport. The patient was Lemus acted prior to arrival. The patient adamantly denies using any drugs. The patient denies having any suicidal or homicidal ideations. He denies having any history of depression. He denies taking any prescribed medications. The patient is agitated, intermittently tearful on arrival. The patient refuses to provide any other significant history or review of systems information. [facility] Past Medical History Narrative Medical The patient's past medical history is reportedly none Blood Disorders: Yes (thrombocytopenia) Cardiovascular Problems: No Cerebrovascular Accident: Yes Diabetes: No Endocrine: No Genitourinary: No Immune Disorder: No Musculoskeletal: No Neurologic: No Psychiatric: No Reproductive: No Respiratory: No Thyroid Disease: No Past Surgical History Narrative Surgical The patient's past surgical history is reportedly none. Other Surgery: No Social History Alcohol Use: No (denies ) Tobacco Use: Yes (2 packs per day) Substance Use: No Allergies-Medications (Allergen,Severity, Reaction): Coded Allergies: No Known Allergies (Unverified , 07/04/16) Reported Meds & Prescriptions Reported Meds & Active Scripts Active Active Prescriptions or Reported Medications Unobtainable Review of Systems ROS Limitations: Refused Eyes: No: Visual changes HENT: No: Headaches Neurologic: Positive: Change in Mentation Psychiatric: No: Depression Physical Exam Narrative General: The patient is a well-developed well-nourished male in no acute physical distress. The patient however on examination is intermittently yelling at the staff, intermittently tearful. Head and Neck exam: Head is normocephalic atraumatic. Eyes: Pupils are equal round and reactive to light. Nose: Midline septum with pink mucous membranes Mouth: Dentition unremarkable. Moist mucus membranes. Posterior oropharynx is not erythematous. No tonsillar hypertrophy. Uvula midline. Airway patent. Neck: No palpable lymphadenopathy. No nuchal rigidity. No thyromegaly. Cardiovascular: Sinus tachycardia in the 1 teens to 120s without murmurs, gallops, or rubs. No pulse deficit to the extremities and simultaneous auscultation and palpation of his radial artery. Lungs: Clear to auscultation bilaterally. No wheezes, rhonchi, or rales. Abdomen: Soft, without tenderness to palpation in all 4 quadrants of the abdomen. No guarding, rebound, or rigidity. Normal bowel sounds are audible. No tenderness on palpation of McBurney's point. Negative [place] sign. Extremities: No clubbing, cyanosis, or edema. 2+ pulses in all 4 extremities. No calf tenderness on palpation. Back: No costovertebral angle tenderness to palpation. Neurologic Exam: Grossly nonfocal. Skin Exam: No rash noted. Intact skin that is warm and dry. Data Data Last Documented VS Vital Signs Date Time Temp Pulse Resp B/P Pulse Ox O2 Delivery O2 Flow Rate FiO2 12/02/16 10:48 77 16 142/75 100 12/02/16 10:16 97.9 Room Air 12/02/16 06:06 3 Orders Electrocardiogram (12/01/16 20:40) Complete Blood Count With Diff (12/01/16 20:40) Comprehensive Metabolic Panel (12/01/16 20:40) Prothrombin Time / Inr (Pt) (12/01/16 20:40) Act Partial Throm Time (Ptt) (12/01/16 20:40) Urinalysis - C+S If Indicated (12/01/16 20:40) Chest, Single Ap (12/01/16 20:40) Iv Access Insert/Monitor (12/01/16 20:40) Ecg Monitoring (12/01/16 20:40) Oximetry (12/01/16 20:40) Drug Screen, Random Urine (12/01/16 20:40) Alcohol (Ethanol) (12/01/16 20:40) Salicylates (Aspirin) (12/01/16 20:40) Tylenol (Acetaminophen) (12/01/16 20:40) Sodium Chlor 0.9% 1000 Ml Inj (Ns 1000 M (12/01/16 20:45) Psych Screen (12/01/16 20:43) Sodium Chlor 0.9% 1000 Ml Inj (Ns 1000 M (12/01/16 22:45) Diet Regular Basic (12/02/16 Breakfast) Labs Laboratory Tests Test 12/01/16 21:05 White Blood Count 10.2 TH/MM3 Red Blood Count 4.92 MIL/MM3 Hemoglobin 14.8 GM/DL Hematocrit 42.5 % Mean Corpuscular Volume 86.5 FL Mean Corpuscular Hemoglobin 30.1 PG Mean Corpuscular Hemoglobin 34.8 % Concent Red Cell Distribution Width 16.5 % Platelet Count 61 TH/MM3 Mean Platelet Volume 8.8 FL Neutrophils (%) (Auto) 47.1 % Lymphocytes (%) (Auto) 40.0 % Monocytes (%) (Auto) 10.1 % Eosinophils (%) (Auto) 2.2 % Basophils (%) (Auto) 0.6 % Neutrophils # (Auto) 4.8 TH/MM3 Lymphocytes # (Auto) 4.1 TH/MM3 Monocytes # (Auto) 1.0 TH/MM3 Eosinophils # (Auto) 0.2 TH/MM3 Basophils # (Auto) 0.1 TH/MM3 CBC Comment AUTO DIFF Differential Comment AUTO DIFF CONFIRMED Platelet Estimate LOW Platelet Morphology Comment NORMAL Prothrombin Time 10.8 SEC Prothromb Time International 1.0 RATIO Ratio Activated Partial 21.5 SEC Thromboplast Time Sodium Level 134 MEQ/L Potassium Level 4.3 MEQ/L Chloride Level 104 MEQ/L Carbon Dioxide Level 21.0 MEQ/L Anion Gap 9 MEQ/L Blood Urea Nitrogen 29 MG/DL Creatinine 1.75 MG/DL Estimat Glomerular Filtration 45 ML/MIN Rate Random Glucose 116 MG/DL Calcium Level 8.9 MG/DL Total Bilirubin 0.5 MG/DL Aspartate Amino Transf 29 U/L (AST/SGOT) Alanine Aminotransferase 68 U/L (ALT/SGPT) Alkaline Phosphatase 77 U/L Total Protein 7.5 GM/DL Albumin 3.9 GM/DL Salicylates Level 3.1 MG/DL Acetaminophen Level LESS THAN 2.0 MCG/ML Ethyl Alcohol Level LESS THAN 3 MG/DL MDM Medical Decision Making Medical Screen Exam Complete: Yes Emergency Medical Condition: Yes Medical Record Reviewed: Yes Interpretation(s) Last Impressions Chest X-Ray 12/01/162039 Signed Impressions: Service Date/Time: Thursday, December 01, 2016 20:37 - CONCLUSION: No acute disease. Silvino Johnson MD Differential Diagnosis Accidental versus intentional opiate overdose, versus other substance intoxication Narrative Course During the course of the patients emergency department visit, the patients history, examination, and differential diagnosis were reviewed with the patient. The patient had IV access obtained and blood work sent for analysis. The patient was placed on a monitor and storage bin tender with oximetry and blood pressure monitoring. The patient's Lemus act was reviewed by me. A psychiatric screen was ordered. An ECG was done. The patient's ECG shows a sinus tachycardia rate of 117, no acute ST segment elevation or depression, T waves are inverted in V1. The patient was repeatedly examined during his emergency department visit for any declines in his level of consciousness or respiratory depression. The patient remained stable throughout his observation period The patient was initially provided normal saline IV fluids. The patients laboratory studies were reviewed and remarkable for a white count of 10.2, hemoglobin 14.8, platelets 61 with 10.1 monocytes, CMP is remarkable for sodium of 134, BUN 29, creatinine 1.75, glucose 116, PT 10.8, PTT 21.5, acetaminophen less than 2, alcohol level less than 3, salicylate 3.1. Radiology studies were reviewed and remarkable for a chest x-ray that shows no acute cardiopulmonary disease. The patient has been medically cleared for evaluation by the psychiatric screener under a Lemus act. Diagnosis Primary Impression: Altered mental status Qualified Code: R40.0 - Somnolence Scripts Unable to Obtain Active Prescriptions or Reported Meds Jillian Chavez MD Dec 01, 2016 20:55 Diagnosis Primary Impression: Altered mental status Qualified Code: R40.0 - Somnolence Scripts Unable to Obtain Active Prescriptions or Reported Meds Jillian Chavez MD Dec 01, 2016 20:55
--- NOTE | 2016-12-01 21:00 | RADRPT ---
EXAM DATE/TIME: 12/01/2016 20:37 [facility] COMPARISON: CHEST SINGLE AP, March 07, 2015, 19:41. INDICATIONS : Altered mental status. MEDICAL HISTORY : None. SURGICAL HISTORY : None. ENCOUNTER: Initial ACUITY: 1 day PAIN SCORE: 0/10 LOCATION: Bilateral chest FINDINGS: A single view of the chest demonstrates the lungs to be symmetrically aerated without evidence of mas s, infiltrate or effusion. The cardiomediastinal contours are unremarkable. Osseous structures are intact. CONCLUSION: No acute disease. Silvino Johnson MD on December 01, 2016 at 20:58 Board Certified Radiologist. This report was verified electronically.
[2016-12-01 21:38] LABS: APTT (PATIENT) 21.5 SEC (24.3-30.1); PROTHROMBIN TIME - PATIENT 10.8 SEC (9.8-11.6)
[2016-12-01 21:40] LABS: ALT (GPT) 68 U/L (12-78); ANION GAP 9 MEQ/L (5-15); AST (GOT) 29 U/L (15-37); BLOOD UREA NITROGEN 29 MG/DL (7-18); CHLORIDE 104 MEQ/L (98-107); GLOMERULAR FILTRATION RATE 45 ML/MIN (>89); POTASSIUM 4.3 MEQ/L (3.5-5.1); SODIUM (NA) 134 MEQ/L (136-145)
[2016-12-01 21:43] LABS: ALKALINE PHOSPHATASE 77 U/L (45-117); TOTAL BILIRUBIN ADULT 0.5 MG/DL (0.2-1.0)
[2016-12-01 21:54] LABS: ACETAMINOPHEN LESS THAN 2.0 MCG/ML (10.0-30.0)
[2016-12-01 22:02] LABS: AUTOMATED NEUTROPHIL # 4.8 TH/MM3 (1.8-7.7); BASOPHIL # 0.1 TH/MM3 (0-0.2); BASOPHIL % 0.6 % (0.0-2.0); EOSINOPHIL # 0.2 TH/MM3 (0-0.4); EOSINOPHIL % 2.2 % (0.0-4.0); HEMATOCRIT 42.5 % (39.0-51.0); LYMPHOCYTE # 4.1 TH/MM3 (1.0-4.8); MEAN CELL VOLUME 86.5 FL (80.0-100.0); MEAN CORPUSCULAR HEMOGLOBIN 30.1 PG (27.0-34.0); MEAN CORPUSCULAR HGB CONC 34.8 % (32.0-36.0); MONO % 10.1 % (0.0-8.0); NEUT % 47.1 % (16.0-70.0); PLATELET COUNT 61 TH/MM3 (150-450); RED BLOOD COUNT 4.92 MIL/MM3 (4.50-5.90); RED CELL DISTRIBUTION WIDTH 16.5 % (11.6-17.2); WHITE BLOOD COUNT 10.2 TH/MM3 (4.0-11.0)
[2016-12-01 22:04] LABS: HEMO FLAGS AUTO DIFF
[2016-12-01 22:26] LABS: PLATELET ESTIMATE SMEAR LOW (NORMAL); PLATELET MORPHOLOGY NORMAL (NORMAL); SCAN/DIFF AUTO DIFF CONFIRMED
[2016-12-01 23:47] VITALS: BP 130/80; PULSE 90; RESP 16; O2SAT 100
[2016-12-02] VITALS (7 sets, daily range): BP systolic 112–142; BP diastolic 70–78; PULSE 65–92; RESP 14–20; TEMP 97.9; O2SAT 98–100
--- NOTE | 2016-12-02 10:07 | PD ---
History of Present Illness Chief Complaint: Psychiatric Symptoms Time Seen by Provider: 10:00 Travel History International Travel<30 Days: No Contact w/Intl Traveler<30days: No Known affected area: No Legal Status Legal Status: Lemus Act Lemus Act Signed By: Danica Rivera History of Present Illness: History of Present Illness The patient is a 36 year old male with a psychiatric history of polysubstance dependence, including cocaine, marijuana, amphetamines as per record who presents to the [facility] emergency department under a BA initiated by [facility]. The report alleges that the patient's friend found him slumped over a couch and that he appeared to have overdosed on an unknown substance. His 2 year old son was in the house with him .He became combative and was refusing medical care and there fore was placed under a BA. EMR is reviewed. Toxicology report is not available at this time. He was evaluated by on August 2016 when he came in for evaluation of AMS when he was found wandering around in a store while intoxicated. Seen in main Ed. Nursing staff report that he has not been agitated. He is asleep but awakens easily. He alert and oriented. Speech is clear and logical. He denies that he is using any substances and denies recent use of any. He reports that he was having a hard time sleeping after having worked all day and took " 2 sleeping pills " that he bought OTC. He denies that it was a suicidal intent . He is worried over his son who he has custody of since DCF was called. He denies any previous psychiatric history, no previous suicide attempts. PFSH Past Medical History Medical History: Unable to Obtain Blood Disorders: Yes (thrombocytopenia) Cardiovascular Problems: No Cerebrovascular Accident: Yes Diabetes: No Endocrine: No Genitourinary: No Immune Disorder: No Musculoskeletal: No Neurologic: No Psychiatric: No Reproductive: No Respiratory: No Thyroid Disease: No Tetanus Vaccination: > 5 Years Influenza Vaccination: No Past Surgical History Surgical History: Unable to Obtain Other Surgery: No Psychiatric History Psychiatric History Hx Psychiatric Treatment: denies any History of Inpatient Treatment: No Guns or firearms in home: No Social History male. Lives with his 2 year old son. Completed high school. Works as a hot tar roofer helper. Hx Alcohol Use: No (denies ) Hx Tobacco Use: Yes (2 packs per day) Hx Substance Use: No (DENIES but record hx of positive for several ) Hx of Substance Use Treatment: No Family Psychiatric History Negative Allergies-Medications (Allergen,Severity, Reaction): Coded Allergies: No Known Allergies (Unverified , 07/04/16) Reported Meds & Prescriptions Reported Meds & Active Scripts Active Active Prescriptions or Reported Medications Unobtainable Review of Systems Except as stated in HPI: all other systems reviewed are Neg Exam Alert: Yes [place]: Person (ox4) Mood: Calm Affect: Appropriate Speech: Clear, Logical Eye Contact: Normal Memory Intact: Comment (no impairmetn) Hallucinations: Other (nregative) Delusions: No Suicidal: Ideation (denies any) Homicidal: Ideation (denies any) Insight/Judgement Fair . Not impaired. MDM Medical Decision Making Medical Record Reviewed: Yes Assessment/Plan The patient is a 36 year old male with a psychiatric history of polysubstance dependence, including cocaine, marijuana, amphetamines as per record who presents to the [facility] emergency department under a BA initiated by [facility]. The report alleges that the patient's friend found him slumped over a couch and that he appeared to have overdosed on an unknown substance. He denies that he used any illegal substance. On psychiatric evaluation today the patient does not present any evidence of acute,or significant objective or subjective symptomatology of depression, anxiety, jordy or psychosis. Patient denies suicidal and homicidal ideation, he denies visual and auditory hallucinations. He denies any substance use. At the moment of this evaluation patient is logical, coherent, oriented 3, without any attention deficit and no cognitive impairment. He does not meet criteria for psychiatric admission at this moment or present any criteria for BA. Cleared from psychiatry for discharge . Lift and discharge Orders Electrocardiogram (12/01/16 20:40) Complete Blood Count With Diff (12/01/16 20:40) Comprehensive Metabolic Panel (12/01/16 20:40) Prothrombin Time / Inr (Pt) (12/01/16 20:40) Act Partial Throm Time (Ptt) (12/01/16 20:40) Urinalysis - C+S If Indicated (12/01/16 20:40) Chest, Single Ap (12/01/16 20:40) Iv Access Insert/Monitor (12/01/16 20:40) Ecg Monitoring (12/01/16 20:40) Oximetry (12/01/16 20:40) Drug Screen, Random Urine (12/01/16 20:40) Alcohol (Ethanol) (12/01/16 20:40) Salicylates (Aspirin) (12/01/16 20:40) Tylenol (Acetaminophen) (12/01/16 20:40) Sodium Chlor 0.9% 1000 Ml Inj (Ns 1000 M (12/01/16 20:45) Psych Screen (12/01/16 20:43) Sodium Chlor 0.9% 1000 Ml Inj (Ns 1000 M (12/01/16 22:45) Diet Regular Basic (12/02/16 Breakfast) Results Vital Signs Date Time Temp Pulse Resp B/P Pulse Ox O2 Delivery O2 Flow Rate FiO2 12/02/16 09:21 88 18 122/72 100 Room Air 12/02/16 06:06 65 14 112/73 100 Nasal Cannula 3 12/02/16 05:03 76 14 112/78 99 Room Air 3 12/02/16 04:35 99 Nasal Cannula 2.00 12/02/16 02:11 92 14 123/74 99 Nasal Cannula 2 12/01/16 23:47 90 16 130/80 100 Nasal Cannula 2 12/01/16 20:52 106 12/01/16 20:52 14 99 Nasal Cannula 4 12/01/16 20:46 98.2 101 16 134/86 96 Laboratory Tests Test 12/01/16 21:05 White Blood Count 10.2 Red Blood Count 4.92 Hemoglobin 14.8 Hematocrit 42.5 Mean Corpuscular Volume 86.5 Mean Corpuscular Hemoglobin 30.1 Mean Corpuscular Hemoglobin 34.8 Concent Red Cell Distribution Width 16.5 Platelet Count 61 Mean Platelet Volume 8.8 Neutrophils (%) (Auto) 47.1 Lymphocytes (%) (Auto) 40.0 Monocytes (%) (Auto) 10.1 Eosinophils (%) (Auto) 2.2 Basophils (%) (Auto) 0.6 Neutrophils # (Auto) 4.8 Lymphocytes # (Auto) 4.1 Monocytes # (Auto) 1.0 Eosinophils # (Auto) 0.2 Basophils # (Auto) 0.1 CBC Comment AUTO DIFF Differential Comment AUTO DIFF CONFIRMED Platelet Estimate LOW Platelet Morphology Comment NORMAL Prothrombin Time 10.8 Prothromb Time International 1.0 Ratio Activated Partial 21.5 Thromboplast Time Sodium Level 134 Potassium Level 4.3 Chloride Level 104 Carbon Dioxide Level 21.0 Anion Gap 9 Blood Urea Nitrogen 29 Creatinine 1.75 Estimat Glomerular Filtration 45 Rate Random Glucose 116 Calcium Level 8.9 Total Bilirubin 0.5 Aspartate Amino Transf 29 (AST/SGOT) Alanine Aminotransferase 68 (ALT/SGPT) Alkaline Phosphatase 77 Total Protein 7.5 Albumin 3.9 Salicylates Level 3.1 Acetaminophen Level LESS THAN 2.0 Ethyl Alcohol Level LESS THAN 3 Diagnosis Primary Impression: Altered mental status, unspecified Additional Impression: R/O substance use Psychiatrically Cleared: Yes Med/ Other Pt Specific Info: No Meds Exist/No RX given Prescriptions Unable to Obtain Active Prescriptions or Reported Meds Disposition: 01 DISCHARGE HOME Condition: Stable Problem Qualifiers Primary Impression: Altered mental status, unspecified Qualified Code: R40.0 - Somnolence Karla Olivas [facility] Dec 02, 2016 10:07
--- NOTE | 2016-12-02 15:38 | EKG ---
Date Performed: 12/01/2016 Time Performed: 20:38:55 PTAGE: 36 years EKG: SINUS TACHYCARDIA ABNORMAL RHYTHM ECG PREVIOUS TRACING : 03/07/2015 18.33 DOCTOR: Karley Ching Interpretating Date/Time 12/02/2016 15:36:52
== END 2016-12-02 10:50 | disposition home or self-care (01) ==
LOC: NEPE 20:26
DX: R41.82 Altered mental status, unspecified (principal); R40.0 Somnolence; F14.20 Cocaine dependence, uncomplicated; F12.20 Cannabis dependence, uncomplicated; F15.20 Other stimulant dependence, uncomplicated; R00.0 Tachycardia, unspecified; R94.31 Abnormal electrocardiogram [ECG] [EKG]; D69.6 Thrombocytopenia, unspecified; F17.200 Nicotine dependence, unspecified, uncomplicated
CPT/HCPCS: 71010; 80053; 80307; 85025; 85610; 85730; 93005; 96360; 96361; 99285; J7030